=== PATIENT | male | born 1990 | race Caucasian/White ===

== ENCOUNTER 2020-01-18 11:14 | Day surgery (SDC) | payer BC ==
[2020-01-17 08:26] VITALS: BMI 26.6
[~2020-01-18 11:14] MED LIST: LIDOCAINE 1% (10MG/ML) FOR IV START INTRADERMA PRN
[2020-01-18 12:00] VITALS: RESP 16; TEMP 99.2
[2020-01-18] MEDS: LACTATED RINGERS 1,000 ML IV SCH ×2 (12:10→12:45)
[2020-01-18] MEDS ORDERED: PROPOFOL 10 MG/ML 20 ML VIAL IV ONE (12:47)
[2020-01-18] MEDS ORDERED: LIDOCAINE 1% INJ 10MG/ML (20 ML MDV) ONE (12:47)
--- NOTE | 2020-01-18 12:58 | P.PCN ---
Date of Procedure: 01/18/20 Procedure(s) Performed: BRIEF HISTORY: Patient is a 29-year-old white male scheduled for an upper endoscopy for evaluation of progressive intermittent nausea vomiting for the last 1 month duration and also complains of heartburn. Denies any dysphagia or odynophagia. PROCEDURE PERFORMED: Esophagogastroduodenoscopy With biopsy. PREOPERATIVE DIAGNOSIS: epigastric pain/nausea vomiting of evaluation. IV sedation per anesthesia. PROCEDURE: After informed consent was obtained, the patient was brought into the endoscopy unit. IV sedation was administered by Anesthesia under continuous monitoring. Initially the Olympus GIF-140 video endoscope was inserted into the mouth. Esophagus intubated without any difficulty. It was gradually advanced into the stomach and duodenum and carefully examined. The bulb and the second part of the duodenum appeared normal. The scope at this time was withdrawn to t he stomach, adequately insufflated with air, and upon careful examination, mucosa of the antrum, and mild gastritis and biopsies were done from this area. The body, cardia and the fundus appeared normal. The scope was then withdrawn into the esophagus. The GE junction was located at 39 cm from the incisors. there was a question erythema the GE junction with multiple superficial erosion consistent with LA grade B reflux esophagitis. The rest of the esophagus appeared normal and the patient tolerated the procedure well. IMPRESSION: 1. Circumferential erythema the GE junction with multiple superficial consistent with LA grade B reflux esophagitis. 2. Mild antral gastritis. RECOMMENDATIONS: The findings of this examination were discussed with the patient As well as his family. He was advised to follow with the biopsy results. He will be started on Prilosec 20 mg daily be taken half hour before dinner time and was educated about antireflux measures.
[2020-01-18 13:14] VITALS: BP 124/82; PULSE 84
== END 2020-01-18 13:44 | disposition home or self-care (01) ==
LOC: ORWHC2ENDO 11:14
PROVIDERS: ATTEND Internal Medicine Gastroenterology
DX: K29.70 Gastritis, unspecified, without bleeding (principal); K21.0 Gastro-esophageal reflux disease with esophagitis; K31.9 Disease of stomach and duodenum, unspecified; F17.200 Nicotine dependence, unspecified, uncomplicated; Z79.899 Other long term (current) drug therapy
CPT/HCPCS: 88305; 43239; J2001; J2704

== ENCOUNTER 2024-04-07 22:55 | Emergency (ER) | payer BC ==
[2024-04-08] MEDS: ACETAMINOPHEN TAB 500 MG TAB PO STA (00:59)
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
[2024-04-08 02:06] VITALS: BP 135/89; PULSE 77; RESP 18; TEMP 98
== END 2024-04-08 02:06 | disposition home or self-care (01) ==
LOC: EC 22:55
CPT/HCPCS: 70450; 70486; 72125; 99284